=== PATIENT | female | born 1980 | race Caucasian/White ===

== ENCOUNTER 2018-04-28 00:26 | Emergency (ER) | payer MEDICAID ==
[~2018-04-28] VITALS: Ht 162.6 cm; Wt 59.1 kg
[2018-04-28 00:31] VITALS: Ht 162.6 cm; Wt 59.1 kg
[2018-04-28] MEDS ORDERED: SYNTHROID75 MCG (00:33)
[2018-04-28 01:39] LABS: AMORPHOUS SEDIMENT >1+ /lpf (NONE SEEN); APPEARANCE HAZY (CLEAR); BACTERIA FEW /hpf (NONE SEEN); BILIRUBIN NEGATIVE (NEGATIVE); COLOR PINK (YELLOW); GLUCOSE NEGATIVE (NEGATIVE); KETONE NEGATIVE (NEGATIVE); MUCUS <1+ /lpf (NONE SEEN); NITRITE NEGATIVE (NEGATIVE); PROTEIN 1+ mg/dL (NEGATIVE); SPECIFIC GRAVITY 1.005 (1.005-1.020); UROBILINOGEN NORMAL (NORMAL)
[2018-04-28] MEDS ORDERED: MACROBID100 MG PO (02:50)
[2018-04-28 03:04] VITALS: BP 115/72
[2018-04-28] MEDS ORDERED: NAPROSYN500 MG PO (18:38)
== END 2018-04-28 03:04 | disposition home or self-care (01) ==
LOC: D.ER 00:26
PROVIDERS: Family Medicine
DX: N39.0 Urinary tract infection, site not specified (principal); R10.2 Pelvic and perineal pain

== ENCOUNTER 2018-04-28 16:03 | Emergency (ER) | payer MEDICAID ==
[~2018-04-28] VITALS: Ht 162.6 cm; Wt 57.7 kg
[~2018-04-28 16:03] MED LIST: MACROBID100 MG PO; SYNTHROID75 MCG
[2018-04-28 16:26] VITALS: Ht 162.6 cm; Wt 57.7 kg
[2018-04-28 17:19] LABS: BASOPHILS 0.6 % (0-2); EOSINOPHILS 1.8 % (0-7); HEMATOCRIT 35.1 % (36.0-48.0); HEMOGLOBIN 12.5 g/dL (12-16); IMMATURE GRANULOCYTES 0.2 % (0-5); LYMPHOCYTES 30.8 % (15-50); MCH 31.3 pg (26.0-34.0); MCHC 35.6 g/dL (31.0-37.0); MCV 87.8 fL (80.0-100.0); MEAN PLATELET VOLUME 8.4 fL (7.4-10.4); MONOCYTES 3.9 % (2-11); NEUTROPHILS 62.7 % (40-80); PLATELET COUNT 219 10x3/uL (130-400); RDW 13.4 % (11.5-14.5); WBC 5.1 10x3/uL (4.8-10.8)
[2018-04-28 17:35] LABS: ALBUMIN 3.6 g/dL (3.4-5.0); ANION GAP 14.6 mmol/L (8-16); BILIRUBIN - TOTAL 0.17 mg/dL (0.2-1.3); CALCIUM 8.2 mg/dL (8.5-10.1); CARBON DIOXIDE 25.8 mmol/L (21.0-32.0); POTASSIUM - SERUM 3.4 mmol/L (3.5-5.1); PROTEIN - SERUM 7.2 g/dL (6.4-8.2)
[2018-04-28] MEDS ORDERED: NAPROSYN500 MG PO (18:38)
[2018-04-29 01:46] VITALS: BP 113/56
== END 2018-04-28 21:50 | disposition home or self-care (01) ==
LOC: D.ER 16:03
PROVIDERS: Family Medicine
DX: F10.129 Alcohol abuse with intoxication, unspecified (principal); S40.012A Contusion of left shoulder, initial encounter; Y04.2XXA Assault by strike against or bumped into by another person, initial encounter; Y93.89 Activity, other specified; Y92.89 Other specified places as the place of occurrence of the external cause; S20.219A Contusion of unspecified front wall of thorax, initial encounter